=== PATIENT | male | born 1955 | race Caucasian/White ===

== ENCOUNTER 2025-02-21 12:51 | Emergency (ER) | payer MEDICARE, MEDICAID ==
[~2025-02-21] VITALS: Ht 177.8 cm; Wt 68.2 kg
[~2025-02-21 12:51] MED LIST: CLON-592 PO; METF-446 PO; NEXIUM; VALS160T2 PO; ZOLP-162 PO; [UNRECOGNIZED DRUG - CODE] IV
[2025-02-21 13:03] VITALS: TEMP 98.8
[2025-02-21 14:58] VITALS: BP 137/83; PULSE 85; RESP 16; O2SAT 100
== END 2025-02-21 15:15 | disposition home or self-care (01) ==
LOC: EMS 12:53
DX: R07.0 Pain in throat (principal); K21.9 Gastro-esophageal reflux disease without esophagitis; E11.9 Type 2 diabetes mellitus without complications; I10 Essential (primary) hypertension; F41.9 Anxiety disorder, unspecified; Z79.84 Long term (current) use of oral hypoglycemic drugs
CPT/HCPCS: 82962; 87430; 99283